=== PATIENT | female | born 1985 | race Caucasian/White ===

== ENCOUNTER 2017-12-21 15:37 | Emergency (ER) | payer OTHER ==
[2017-12-21 15:50] VITALS: BP 113/66
--- NOTE | 2017-12-21 17:10 | RAD ---
INDICATION: Low back pain with right-sided sciatica COMPARISON: None. TECHNIQUE: 5 views of the lumbar spine were obtained. FINDINGS: The vertebra are in normal alignment. No fracture is seen. Disc spaces appear maintained. IMPRESSION: Normal radiographic series of the lumbar spine.
--- NOTE | 2017-12-21 18:03 | UC ---
Charlie Ocampo Jade, scribed for Jaime Salter MD on 12/21/17 at 1630 . Back Pain HPI - HPI Summary HPI Summary: Pt is a 32 y/o female who presents to [facility] [place] c/o back pain. 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 The pain is described as 4/10 in severity and feels achy. She also has a PMHx of sciatic nerve pain, and states the pain affects her right leg. Her right leg fatigues easily upon exertion and feels weak and begins shaking. She states sitting on stools makes the leg fatigue worse. Pt fell on the floor when getting off a stool the other day because her leg gave out, which she states happened before. She denies any numbness or incontinence. Pt does not like taking narcotics or muscle relaxers. - History of Current Complaint Chief Complaint: UCBackPain Time Seen by Provider: 12/21/17 16:19 Hx Obtained From: Patient Onset/Duration: Sudden Onset, Lasting Days - 3 days ago, Still Present Timing: Constant Severity Currently: Moderate Pain Intensity: 4 Pain Scale Used: 0-10 Numeric Back Pain: Is Discrete @ - Right lower back Character: Aching Aggravating Factor(s): Movement Alleviating Factor(s): Nothing Associated Signs And Symptoms: Positive: Weakness, Pain with Weight Bearing. Negative: Numbness, Bladder Incontinence, Bowel Incontinence - Allergies/Home Medications Allergies/Adverse Reactions: Allergies Allergy/AdvReac Type Severity Reaction Status Date / Time No Known Allergies Allergy Verified 12/21/17 15:50 PMH/Surg Hx/FS Hx/Imm Hx Endocrine History: Other - Chronic back problems Other Endocrine History: . Neurological History: Other - Sciatic nerve pain Other Neurological History: . - Surgical History Surgical History: None - Family History Known Family History: Positive: Other - Back problems - Social History Alcohol Use: Occasionally Substance Use Type: Marijuana Substance Use Comment - Amount & Last Used: weekly Smoking Status (MU): Light Every Day Tobacco Smoker Type: Cigarettes Review of Systems Constitutional: Negative - Fever Musculoskeletal: Other: - Right lower back pain Neurological: Negative - Numbness, Weakness - Right leg weakness and fatigue with exertion All Other Systems Reviewed And Are Negative: Yes Physical Exam - Summary Physical Exam Summary: General: well-appearing, no pain distress Skin: warm, color reflects adequate perfusion, dry Head: normal Eyes: EOMI, LEOBARDO ENT: normal Neck: supple, nontender Respiratory: CTA, breath sounds present Cardiovascular: RRR Abdomen: soft, nontender Bowel: present Musculoskeletal: Tenderness of right sciatic distribution on right lower back. Neurological: sensory/motor intact, A&O x3 Psychological: affect/mood appropriate Triage Information Reviewed: Yes Vital Signs: Initial Vital Signs Temp 98.3 F 12/21/17 15:47 Pulse 87 12/21/17 15:47 Resp 18 12/21/17 15:47 BP 113/66 12/21/17 15:47 Pulse Ox 99 12/21/17 15:47 Vital Signs Reviewed: Yes Diagnostics - Radiology Lumbar Spine XR Xray Interpretation: No Acute Changes - 16:33: Normal radiographic series of the lumbar spine. physician reviewed radiology report. Radiology Interpretation Completed By: Radiologist Back Pain Course/Dx - Course Course Of Treatment: NO NEUROLOGIC DEFICTS ON EXAM. OUT OF WORK/RETURN . F/U PMD FOR FURTHER EVALUATION AND CARE. - Differential Dx/Diagnosis Provider Diagnoses: Low back strain, lumbar radiculopathy Discharge - Sign-Out/Discharge Documenting (check all that apply): Discharge/Admit/Transfer - Discharge - Discharge Plan Condition: Stable Disposition: HOME Prescriptions: Ibuprofen TAB* [Motrin TAB* 800 MG] 800 mg PO Q8H #30 tab Patient Education Materials: Low Back Strain (ED), Lumbar Radiculopathy (ED), Lower Back Exercises (ED) Forms: *Work Release Referrals: [facility] [place] PH[facility]ICIAN REFERRAL [Outside] Additional Instructions: FOLLOW UP WITH YOUR DOCTOR. GET RECHECKED FOR ANY WORSENING OF YOUR CONDITION; WEAKNESS, NUMBNESS, DIFFICULTY CONTROLLING BOWEL OR BLADDER OR QUESTIONS OR CONCERNS. - Billing Disposition and Condition Condition: STABLE Disposition: Home The documentation as recorded by the Charlie rivas Jade accurately reflects the service I personally performed and the decisions made by me, Jaime Salter MD.
== END 2017-12-21 17:27 | disposition home or self-care (01) ==
LOC: UCEAST 15:37
DX: S39.012A Strain of muscle, fascia and tendon of lower back, initial encounter (principal); M54.16 Radiculopathy, lumbar region; F17.210 Nicotine dependence, cigarettes, uncomplicated; X50.0XXA Overexertion from strenuous movement or load, initial encounter; Y92.89 Other specified places as the place of occurrence of the external cause
CPT/HCPCS: 72110; 99202; G0463

== ENCOUNTER 2017-12-26 12:48 | Emergency (ER) | payer OTHER ==
[2017-12-26] MEDS ORDERED: Dexamethasone IV* 4 MG/ML 1 ML (4 MG) IM ONE (13:09)
[2017-12-26] MEDS ORDERED: Ketorolac INJ* 30 MG/ML 1 ML VIAL IM ONE (13:09)
[2017-12-26 14:29] VITALS: BP 106/64
--- NOTE | 2017-12-26 19:47 | ED ---
Charlie Ocampo Jade, scribed for Joe Lloyd MD on 12/26/17 at 1324 . Back Pain - HPI Summary HPI Summary: Pt is a 32 y/o female who presents to the ED c/o lower back pain and radiation down the legs. She states she injured her back in 2006, and threw out her back again at work 8 days ago. Pt went to the , and was told to rest. She states she has low back pain, and gets weakness and tingling in her legs R>L when walking or sitting for long periods of time. Pt is currently trying to get in to see a PCP, but nobody will take her. The pain is now rated a 5/10 in severity. Pt denies any incontinence, fever, chills, N/V, or dysuria. She occasionally smokes cigarettes and uses marijuana. Pt denies drug use, any allergies, or major surgeries. She does not want any narcotics or muscle relaxers, because she gets nightmares from them due to her PTSD. LNMP currently. She denies Luis Carlos or bladder incontinence, saddle anesthesia, fevers , chills, urinary symptoms - History of Current Complaint Chief Complaint: EDBackInjuryPain Stated Complaint: BACK PAIN Time Seen by Provider: 12/26/17 13:00 Hx Obtained From: Patient Onset/Duration: Gradual Onset, Still Present Timing: Constant Severity Currently: Moderate Pain Intensity: 6 Pain Scale Used: 0-10 Numeric Aggravating Symptom(s): Walking, Other - Sitting for long periods of time Alleviating Symptom(s): Nothing Associated Signs And Symptoms: Positive: Weakness, Numbness, Tingling. Negative : Bladder Incontinence, Bowel Incontinence - Allergies/Home Medications Allergies/Adverse Reactions: Allergies Allergy/AdvReac Type Severity Reaction Status Date / Time No Known Allergies Allergy Verified 12/26/17 12:59 PMH/Surg Hx/FS Hx/Imm Hx Musculoskeletal History: Reports: Other Musculoskeletal History - Chronic back problems Neurological History: Reports: Other Neuro Impairments/Disorders - Sciatic nerve pain Infectious Disease History: No Infectious Disease History: Denies: Traveled Outside the [place] in Last 30 Days - Family History Known Family History: Positive: Other - Back problems - Social History Alcohol Use: Occasionally Substance Use Type: Reports: Marijuana Substance Use Comment - Amount & Last Used: "occasionally" Smoking Status (MU): Light Every Day Tobacco Smoker Type: Cigarettes Review of Systems Negative: Fever, Chills Negative: Vomiting, Nausea Negative: dysuria, incontinence Positive: Weakness, Paresthesia All Other Systems Reviewed And Are Negative: Yes Physical Exam - Summary Physical Exam Summary: GENERAL: Patient is a well-developed and nourished F who is lying comfortable in the stretcher. Patient is not in any acute respiratory distress. HEAD AND FACE: Normocephalic. EYES: PERRLA, EOMI x 2. EARS: Hearing grossly intact. MOUTH: Oropharynx within normal limits. NECK: Supple, trachea is midline, no adenopathy, no JVD, no carotid bruit. CHEST: Symmetric, no tenderness at palpation LUNGS: Clear to auscultation bilaterally. No wheezing or crackles. CVS: Regular rate and rhythm, S1 and S2 present, no murmurs or gallops appreciated. ABDOMEN: Soft. Bowel sounds are normal. No abdominal abnormal pulsations. Mild tenderness of lumbar spine area. EXTREMITIES: Full ROM in all major joints, no edema, no cyanosis or clubbing. NEURO: Alert and oriented x 3. No acute neurological deficits. Speech is normal and follows commands. 5/5 strength bilaterally of LE, 2/2 sensation in the lower extremities SKIN: Dry and warm. Triage Information Reviewed: Yes Vital Signs On Initial Exam: Initial Vitals Temp Pulse Resp BP Pulse Ox 97.7 F 81 17 122/63 97 12/26/17 12:55 12/26/17 12:55 12/26/17 12:55 12/26/17 12:55 12/26/17 12:55 Vital Signs Reviewed: Yes Diagnostics - Vital Signs Vital Signs Temp Pulse Resp BP Pulse Ox 12/26/17 12:55 97.7 F 81 17 122/63 97 - Laboratory Lab Statement: Any lab studies that have been ordered have been reviewed, and results considered in the medical decision making process. Back Pain Course/Dx - Course Course Of Treatment: Pt is a 32 y/o female who presents to the ED c/o lower back pain and leg weakness. She states she injured her back in 2006, and threw out her back again at work 8 days ago. Pt went to the , and was told to rest. She states she has low back pain, and gets weakness and tingling in her legs R> L when walking or sitting for long periods of time. Pt is currently trying to get in to see a PCP, but nobody will take her. The pain is now rated a 5/10 in severity. Pt denies any bowel or bladder incontinence or saddle anesthesia, fever, chills, N/V, or dysuria. She occasionally smokes cigarettes and uses marijuana. Pt denies drug use, any allergies, or major surgeries. She does not want any narcotics or muscle relaxers, because she gets nightmares from them due to her PTSD. LNMP currently. Upon re-evaluation, pt reports some improvement from the medications. Pt otherwise is stable for discharge, and given strict return precautions. Plan to follow up for outpatient MRI. No images were obtained given the pain is chronic and there were no red flags. Final dx was back pain with lumbar radiculopathy. - Diagnoses Provider Diagnoses: Lumbar back pain with radiculopathy affecting right lower extremity Discharge - Sign-Out/Discharge Documenting (check all that apply): Discharge/Admit/Transfer - Discharge Plan Condition: Improved Disposition: HOME Patient Education Materials: Chronic Back Pain (ED), Back Pain (ED) Forms: *Work Release Referrals: No Primary Care Phys,NOPCP [Primary Care Provider] - Hannah Hernandez MD [Medical Doctor] - - Billing Disposition and Condition Condition: IMPROVED Disposition: Home The documentation as recorded by the Charlie rivas Jade accurately reflects the service I personally performed and the decisions made by me, Joe Lloyd MD.
== END 2017-12-26 14:28 | disposition home or self-care (01) ==
LOC: ED 12:48
DX: M54.16 Radiculopathy, lumbar region (principal); F43.10 Post-traumatic stress disorder, unspecified; F17.210 Nicotine dependence, cigarettes, uncomplicated
CPT/HCPCS: 96372; 99282; J1100; J1885

== ENCOUNTER 2019-01-13 21:11 | Emergency (ER) | payer OTHER ==
[2019-01-13 21:38] VITALS: BP 103/59
--- NOTE | 2019-01-13 21:45 | UC ---
Hand/Wrist HPI - HPI Summary HPI Summary: 33-year-old woman comes in with a chief complaint of left wrist and hand pain. 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 Pain is along the base of the thumb into the radial aspect of the wrist. At its worse it does radiate up the arm. No weakness or numbness. She does have full range of motion although she does have pain with full range of motion primarily of the thumb and the wrist. - History Of Current Complaint Chief Complaint: UCUpperExtremity Stated Complaint: L WRIST INJURY Time Seen by Provider: 01/13/19 21:43 Hx Last Menstrual Period: 2 WEEKS AGO Pain Intensity: 3 - Allergies/Home Medications Allergies/Adverse Reactions: Allergies Allergy/AdvReac Type Severity Reaction Status Date / Time No Known Allergies Allergy Verified 01/13/19 21:37 Home Medications: Home Medications Ibuprofen TAB* [Advil TAB*] 800 mg PO ONCE PRN 01/13/19 [History Confirmed 01/13] PMH/Surg Hx/FS Hx/Imm Hx Previously Healthy: Yes - Surgical History Surgical History: Yes Surgery Procedure, Year, and Place: D&C - Family History Known Family History: Positive: Other - Back problems - Social History Alcohol Use: None Substance Use Type: None Substance Use Comment - Amount & Last Used: "occasionally" Smoking Status (MU): Current Every Day Smoker Type: Cigarettes Amount Used/How Often: 1/2 PPD Review of Systems All Other Systems Reviewed And Are Negative: Yes Constitutional: Positive: Negative Skin: Positive: Negative Eyes: Positive: Negative ENT: Positive: Negative Respiratory: Positive: Negative Cardiovascular: Positive: Negative Gastrointestinal: Positive: Negative Motor: Positive: Negative Neurovascular: Positive: Negative Musculoskeletal: Positive: Other: - see hpi Neurological: Positive: Negative Psychological: Positive: Negative Is Patient Immunocompromised?: No Physical Exam Triage Information Reviewed: Yes Appearance: Well-Appearing, No Pain Distress, Well-Nourished Vital Signs: Initial Vital Signs Temp 98.4 F 01/13/19 21:34 Pulse 72 01/13/19 21:34 Resp 16 01/13/19 21:34 BP 103/59 01/13/19 21:34 Pulse Ox 97 01/13/19 21:34 Vital Signs Reviewed: Yes Eye Exam: Normal Eyes: Positive: Conjunctiva Clear Neck: Positive: Supple Respiratory: Positive: No respiratory distress Musculoskeletal: Positive: Other: - Distal radius into the left wrist and up to the base of the left thumb is tender to palpation. Fingers and thumb have full range of motion as does the wrist and the elbow. No sensation deficit. Normal capillary refill normal radial pulse. Neurological: Positive: Alert, Muscle Tone Normal Psychological Exam: Normal Psychological: Positive: Age Appropriate Behavior Skin Exam: Normal Hand/Wrist Course/Dx - Course Course Of Treatment: Findings are consistent with left wrist tendinitis from overuse. Plan is ice anti-inflammatories and a cock-up splint was placed here in clinic by nursing and patient neurovascular intact after placement of the cock-up splint. Tomorrow at work and a half or not lifting more than 15 pounds on January 14, 2019. Patient has 2 days off returns on January 17, 2019 at that time I wrote her to return with no restrictions. If she is not completely improved she is to follow-up with occupational medicine. - Differential Dx/Diagnosis Provider Diagnosis: Wrist pain, left, Left hand pain Discharge - Sign-Out/Discharge Documenting (check all that apply): Patient Departure All imaging exams completed and their final reports reviewed: No - Discharge Plan Condition: Stable Disposition: HOME Patient Education Materials: Wrist Injury (ED), Hand Sprain (ED), Tendinitis ( ED) Forms: *Work Release Referrals: Izaiah Molina MD [Medical Doctor] - Additional Instructions: FOLLOW UP WITH OCCUPATIONAL MEDICINE, DR MOLINA, IF NOT COMPLETELY IMPROVED. GET RECHECKED SOONER IF YOUR CONDITION WORSENS OR ANY QUESTIONS OR CONCERNS. - Billing Disposition and Condition Condition: STABLE Disposition: Home
== END 2019-01-13 22:10 | disposition home or self-care (01) ==
LOC: UCEAST 21:11
DX: M79.642 Pain in left hand (principal); M25.532 Pain in left wrist; F17.210 Nicotine dependence, cigarettes, uncomplicated
CPT/HCPCS: 99212; G0463

== ENCOUNTER 2019-01-24 11:05 | Emergency (ER) | payer OTHER ==
[2019-01-24 11:24] VITALS: BP 123/69
--- NOTE | 2019-01-24 12:22 | UC ---
Hand/Wrist HPI - HPI Summary HPI Summary: 34-year-old woman comes in with a chief complaint of left wrist pain. Pain started on January 13, 2019 at work. She had negative wrist x-rays and was started on a wrist splints eyes anti-inflammatories and a recommendation to decrease use of that left wrist at work. Also recommended follow-up with occupational medicine. The wrist has not improved is ice getting worse. She's been using it quite a bit at work which appears to be making it worse. She does get some numbness and tingling in the fingers. She is using anti- inflammatories and the splint ice elevation. She has not followed up with occupational medicine as she lost her paperwork. - History Of Current Complaint Chief Complaint: UCUpperExtremity Stated Complaint: FOLLOW UP WRIST INJURY Time Seen by Provider: 01/24/19 11:16 Hx Last Menstrual Period: 01/22/19 Pain Intensity: 3 - Allergies/Home Medications Allergies/Adverse Reactions: Allergies Allergy/AdvReac Type Severity Reaction Status Date / Time No Known Allergies Allergy Verified 01/24/19 11:25 PMH/Surg Hx/FS Hx/Imm Hx Previously Healthy: Yes - Surgical History Surgical History: Yes Surgery Procedure, Year, and Place: D&C - Family History Known Family History: Positive: Other - Back problems - Social History Alcohol Use: None Substance Use Type: None Substance Use Comment - Amount & Last Used: "occasionally" Smoking Status (MU): Current Every Day Smoker Type: Cigarettes Amount Used/How Often: 1/2 PPD Review of Systems All Other Systems Reviewed And Are Negative: Yes Constitutional: Positive: Negative Skin: Positive: Negative Eyes: Positive: Negative ENT: Positive: Negative Respiratory: Positive: Negative Cardiovascular: Positive: Negative Gastrointestinal: Positive: Negative Motor: Positive: Other - SEE HPI Neurovascular: Positive: Other - SEE HPI Musculoskeletal: Positive: Other: - SEE HPI Neurological: Positive: Other - SEE HPI Psychological: Positive: Negative Is Patient Immunocompromised?: No Physical Exam Triage Information Reviewed: Yes Appearance: Well-Appearing, No Pain Distress, Well-Nourished Vital Signs: Initial Vital Signs Temp 98.2 F 01/24/19 11:20 Pulse 72 01/24/19 11:20 Resp 18 01/24/19 11:20 BP 123/69 01/24/19 11:20 Pulse Ox 97 01/24/19 11:20 Vital Signs Reviewed: Yes Eye Exam: Normal Eyes: Positive: Conjunctiva Clear Neck: Positive: Supple Respiratory: Positive: No respiratory distress Musculoskeletal: Positive: Other: - The left wrist is tender to palpation along the distal radius and on the dorsum over the radius and the ulna and also on the ulnar aspect of the rest. There is swelling in this area. Patient has full range of motion of the wrist. She has her worst pain with dorsiflexion and abduction. Normal capillary refill. Normal radial pulse. Neurological: Positive: Alert Psychological: Positive: Age Appropriate Behavior Skin Exam: Normal Hand/Wrist Course/Dx - Course Course Of Treatment: I recommended continuing the wrist splint, ice, anti-inflammatories and rest. Also gave the patient the occupational medicine number so that she can follow- up. And have her out of work to rest the wrist I wrote to be out until January. I'm hopeful chills get follow-up prior to that date. - Differential Dx/Diagnosis Provider Diagnosis: Left wrist tendonitis Discharge - Sign-Out/Discharge Documenting (check all that apply): Patient Departure All imaging exams completed and their final reports reviewed: No Studies - Discharge Plan Condition: Stable Disposition: HOME Patient Education Materials: Tendinitis (ED) Forms: *Work Release Referrals: Izaiah Molina MD [Medical Doctor] - Daniel Diez MD [Medical Doctor] - [facility] [Provider Group] Additional Instructions: FOLLOW UP WITH OCCUPATIONAL MEDICINE, DR MOLINA, OR ORTHOPEDICS OR SPORTS MEDICINE. GET RECHECKED SOONER IF YOUR CONDITION WORSENS OR ANY QUESTIONS OR CONCERNS. - Billing Disposition and Condition Condition: STABLE Disposition: Home
== END 2019-01-24 12:25 | disposition home or self-care (01) ==
LOC: UCEAST 11:05
DX: M77.9 Enthesopathy, unspecified (principal); F17.210 Nicotine dependence, cigarettes, uncomplicated
CPT/HCPCS: 99211; G0463